=== PATIENT | female | born 1985 | race Two or more races ===

== ENCOUNTER 2021-07-19 09:57 | Day surgery (SDC) | payer MEDICAID, SELFPAY ==
[2021-07-13 15:50] VITALS: BMI 24.0
[2021-07-19] VITALS (9 sets, daily range): BP systolic 99–125; BP diastolic 68–94; PULSE 57–102; RESP 14–18; TEMP 36.1–37.2; O2SAT 97–100
[2021-07-19 10:16] LABS: UPreg QC Valid YES; Urine Pregnancy NEGATIVE (NEGATIVE)
--- NOTE | 2021-07-19 10:55 | HO.ANESPROP2 ---
HPI - Anesthesia Eval Consult details Narrative: right eye strabismus [facility] Past Medical History Medical History (Updated 07/13/21 @ 15:45 by Soledad Kolb, RN) () Chronic right-sided low back pain with right-sided sciatica Hepatic cyst Family History Family history of problems with anesthesia: No Surgical History Surgical History (Updated 07/13/21 @ 15:43 by Soledad Kolb, RN) History of surgery of liver History of Problems with Anesthesia: No Social History Social History Advance Directives: No Advance Directives Information Provided: Yes Meds Allergies Allergy/AdvReac Type Severity Reaction Status Date / Time tuberculin,PPD,multi-puncture Allergy Rash Verified 07/13/21 15:44 Active Medications: Current Medications Acetaminophen (Acetaminophen 325 Mg Tablet) 650 mg PO ONCE PRN PRN Reason: Pain, Mild (Pain Scale 1-3) Lactated Ringer's (Lr) 1,000 mls @ 100 mls/hr IVCONT .Q10H ROBLES Ondansetron HCl (Ondansetron Hcl 4 Mg/2 Ml Vial) 4 mg IVPUSH ONCE PRN PRN Reason: Nausea and Vomiting Oxycodone HCl (Oxycodone Hcl Immed Release 5 Mg Tablet) 10 mg PO ONCE PRN PRN Reason: Pain, Severe (Pain Scale 7-10) Home Medications Medication Instructions Recorded Confirmed Last Taken Type acetaminophen 500 mg tablet 1,000 mg PO Q8H PRN 07/13/21 07/13/21 Unknown History vit no.95-ferrous 1 tab PO DAILY 07/13/21 07/13/21 Unknown History fumarate 28 mg-folic acid 800 mcg tablet () Exam Exam Date and Time: July 19, 2021 1055 Height,Weight and Vital Signs: Height 4 ft 10.7 in Weight 53.433 kg Pertinent Lab Results Pertinent Lab Results: Laboratory Tests 07/19/21 10:07 Urine Test NEGATIVE Airway Mallampati Class: II TM Dist: >3cm Neck ROM: Full Loose/Missing/Broken Teeth: No Heart: rrr +s1s2 Lungs: cta b/l Assessment and Plan Assessment Anesthesia Assessment: Anesthesia Plan Discussed and Chart Reviewed Final Anesthetic Review Family History of Problems with Anesthesia: No History of Problems with Anesthesia: No NPO: Yes ASA Class: II Final Preanesthetic Review: No Changes in Pt Med Stat, Meds/Allgs Chart Reviewed, Consent Obtained/Reviewed and Anes Risks/Benef Reviewed Patient Risk: Intermediate Procedure Risk: Low Assessment/Block/Sedation in SS: Assess/Block/Sedation-SS Anesthetic Plan Anesthetic Plan: GA and Agree w/ Assess. and Plan Disposition: Standard PACU
[2021-07-19] MEDS: Acetaminophen 325 MG TABLET 650 MG PO (13:13)
[2021-07-19] MEDS: oxyCODONE HCl Immed Release 5 MG TABLET 10 MG PO (13:13)
--- NOTE | 2021-07-19 15:08 | HO.OPHTHAL ---
Ophthalmology Operative Note Date of Service: 07/19/21 Narrative: Diagnosis right exotropia procedure 1. Recession of right lateral rectus muscle 10 mm 2. Resection of right medial rectus muscle 8 mm anesthesia general surgeon Dr. Pereira complications none. The patient was brought to the operating room placed under general anesthesia. The patient's right eye was prepped and draped in the usual sterile ophthalmic fashion. A lid speculum was placed in the eye and an incision was made down to bare sclera in the inferotemporal fornix. The lateral rectus muscle was hooked and secured with a double-armed Vicryl suture. It was then disinserted from the globe and reattached to position 10 mm behind the original insertion. Conjunctiva was closed with interrupted Vicryl sutures. An incision was then made at bare sclera in the inferonasal fornix. The medial rectus muscle was hooked and grasped near its insertion with a [place] muscle clamp. The overlying fascial attachments were dissected free. A 8 mm resection was marked off with cautery and a resection points secured with a double-armed Vicryl suture. The distal muscle was resected and the resection point drawn forward to the original insertion using the Vicryl suture. Conjunctiva was closed with interrupted Vicryl sutures. The patient was then awoken from general anesthesia and discharged to postoperative recovery in good condition.
== END 2021-07-19 14:40 | disposition home or self-care (01) ==
PROVIDERS: Nurse Practitioner; Visit Provider Ophthalmology
PROC: (CPT 67312; principal; 2021-07-19 11:40)
DX: H50.111 Monocular exotropia, right eye (principal); H53.2 Diplopia; Z79.899 Other long term (current) drug therapy; R76.11 Nonspecific reaction to tuberculin skin test without active tuberculosis; Z98.890 Other specified postprocedural states
CPT/HCPCS: 67312; 81025; J1100; J1885; J2250; J2405